=== PATIENT | male | born 1965 ===

== ENCOUNTER 2018-10-08 08:58 | Emergency (ER) | payer OTHER ==
[2018-10-08 09:12] VITALS: BMI 26.5
[2018-10-08] MEDS ORDERED: TDAP Vaccine 0.5 mL Syr IM ONE (09:34)
[2018-10-08 10:36] VITALS: BP 124/53; PULSE 85; RESP 20; TEMP 98; O2SAT 100
--- NOTE | 2018-10-08 10:49 | RAD ---
Date of service: 10/08/2018 PROCEDURE: Left Index finger radiographs. HISTORY: r/o distal finger fx COMPARISON: None available. TECHNIQUE: AP radiograph of the left hand, as well as spot oblique and lateral images of index finger were obtained. FINDINGS: LEFT INDEX FINGER: Unremarkable left 2nd digit without acute displaced fracture identified. Remainder of the left hand (as seen on the AP view) grossly intact. JOINTS: No dislocation. SOFT TISSUES: Soft tissue swelling and oblique soft tissue laceration at the distal 2nd phalanx. No evidence of radiopaque foreign body. OTHER FINDINGS: None. IMPRESSION: Soft tissue swelling and obliques soft tissue laceration at the distal 2nd phalanx. No acute displaced fracture or dislocation identified.
--- NOTE | 2018-10-08 11:00 | ED PDOC ---
Arrival/HPI - General Chief Complaint: Abnormal Skin Integrity Time Seen by Provider: 10/08/18 09:04 Historian: Patient - History of Present Illness Narrative History of Present Illness (Text): 10/08/18 09:57 A 53 year old male, with no significant past medical history, presents to the emergency department complaining of cut to left hand 2nd digit. Patient reports he cut his finger during work while using a saw to cut pork neck bones. Notes also experiencing mild pain to the left hand. Patient denies any numbness to the left 2nd digit, or any other complaints at this time. No PMD Past Medical History - Provider Review Nursing Documentation Reviewed: Yes - Cardiac Hx Cardiac Disorders: Yes Hx Hypertension: Yes - Pulmonary Hx Respiratory Disorders: No - Neurological Hx Neurological Disorder: No - HEENT Hx HEENT Disorder: No - Renal Hx Renal Disorder: No - Endocrine/Metabolic Hx Endocrine Disorders: No - Hematological/Oncological Hx Blood Disorders: No - Integumentary Hx Dermatological Disorder: No - Musculoskeletal/Rheumatological Hx Musculoskeletal Disorders: No - Gastrointestinal Hx Gastrointestinal Disorders: No - Genitourinary/Gynecological Hx Genitourinary Disorders: No - Psychiatric Hx Psychophysiologic Disorder: No Hx Substance Use: No Family/Social History - Physician Review Nursing Documentation Reviewed: Yes Family/Social History: No Known Family HX Smoking Status: Never Smoked Hx Alcohol Use: No Hx Substance Use: No Allergies/Home Meds Allergies/Adverse Reactions: Allergies bee venom protein (honey bee) Allergy (Verified 10/08/18 09:11) SWELLING Review of Systems - Physician Review All systems were reviewed & negative as marked: Yes - Review of Systems Musculoskeletal: Other (left hand pain (mild)) Skin: Other (cut to left hand 2nd digit) Neurological: absent: Other (no numbness to left 2nd digit.) Physical Exam Vital Signs Reviewed: Yes Vital Signs Temp Pulse Resp BP Pulse Ox 10/08/18 10:35 98 F 85 20 124/53 L 100 10/08/18 09:11 97.9 F 72 16 141/97 H 99 Temperature: Afebrile Blood Pressure: Normal Pulse: Regular Respiratory Rate: Normal Appearance: Positive for: Well-Appearing, Non-Toxic, Comfortable Pain Distress: None Mental Status: Positive for: Alert and Oriented X 3 - Systems Exam Upper Extremity: Present: Normal ROM (full ROM to the left 2nd digit), Capillary Refill < 2s (left 2nd digit). No: Cyanosis, Edema Neurological: Present: GCS=15, CN II-XII Intact, Speech Normal Skin: Present: Other (evulsion to left hand 2nd digit fingertip and partial to the nail, no active bleeding) Psychiatric: Present: Alert, Oriented x 3, Normal Insight, Normal Concentration Medical Decision Making ED Course and Treatment: 10/08/18 10:00 Impression: 53 year old male with cut to left hand 2nd digit along with mild pain to hand. Physical exam shows evulsion of left hand 2nd digit fingertip and partial to nail, no active bleeding, good capillary refill, full ROM of 2nd digit; no other acute findings on physical exam. Plan: -- Left Hand X-ray -- Motrin -- Boostrix Vaccine -- Reassess and disposition Progress Notes: 10/08/2018 10:45 Left Hand X-Ray IMPRESSION: Soft tissue swelling and obliques soft tissue laceration at the distal 2nd phalanx. No acute displaced fracture or dislocation identified. Dictator: Lita Garcia MD - RAD Interpretation Radiology Orders: 10/08/18 09:33 HAND LEFT 2ND DIGIT (FINGER) [RAD] Stat - Medication Orders Current Medication Orders: Discontinued Medications Ibuprofen (Motrin Tab) 600 mg PO STAT STA Stop: 10/08/18 09:35 Last Admin: 10/08/18 10:25 Dose: 600 mg [facility] Pain/Vitals Document 10/08/18 10:25 GMI (Rec: 10/08/18 10:25 GMI [facility] [id number]) Pain Reassessment Is This A Pain ReAssessment? Yes Sleep Is patient sleeping during reassessment? No Presence of Pain Presence of Pain Yes Pain Scale Used Protocol: PSCALES Pain Scale Used Numeric Location Pain Location Body Site Hand Tetanus/Reduced Diphtheria/Acell Pertussis (Boostrix Vaccine Inj) 0.5 ml IM .ONCE ONE Stop: 10/08/18 09:35 Last Admin: 10/08/18 10:24 Dose: 0.5 ml Immunization Registry Document 10/08/18 10:24 GMI (Rec: 10/08/18 10:24 GMI [facility] [id number]) [facility]-Date provided 10/08/18 [facility] Immunization Data Document 10/08/18 10:24 GMI (Rec: 10/08/18 10:24 GMI [facility] [id number]) Immunization Data Vaccine Information Sheet Given Yes - Scribe Statement The provider has reviewed the documentation as recorded by the Scribe Hossein Delarosa Provider Scribe Attestation: All medical record entries made by the Scribe were at my direction and personally dictated by me. I have reviewed the chart and agree that the record accurately reflects my personal performance of the history, physical exam, medical decision making, and the department course for this patient. I have also personally directed, reviewed, and agree with the discharge instructions and disposition. Disposition/Present on Arrival - Present on Arrival Any Indicators Present on Arrival: No History of DVT/PE: No History of Uncontrolled Diabetes: No Urinary Catheter: No History of Decub. Ulcer: No History Surgical Site Infection Following: None - Disposition Have Diagnosis and Disposition been Completed?: Yes Diagnosis: Finger avulsion Disposition: HOME/ ROUTINE Disposition Time: 10:10 Condition: GOOD Discharge Instructions (ExitCare): Wound Care (DC) Additional Instructions: DERICK HOUSTON, thank you for letting us take care of you today. Your provider was Alex Miranda DO and you were treated for HURT (L) HAND. The emergency medical care you received today was directed at your acute symptoms. If you were prescribed any medication, please fill it and take as directed. It may take several days for your symptoms to resolve. Return to the Emergency Department if your symptoms worsen, do not improve, or if you have any other problems. Please contact your doctor or call one of the physicians/clinics you have been referred to that are listed on the Patient Visit Information form that is included in your discharge packet. Bring any paperwork you were given at discharge with you along with any medications you are taking to your follow up visit. Our treatment cannot replace ongoing medical care by a primary care provider outside of the emergency department. Thank you for allowing the [facility] team to be part of your care today. Please call Dr. King, the hand doctor, tomorrow morning for a follow up appointment. Keep dressing clean and dry at all times. Prescriptions: Cephalexin [cephalexin] 500 mg PO TID #21 cap Referrals: Jenna King MD [Staff Provider] - Follow up with primary Forms: [employer] (Uzbek)
== END 2018-10-08 10:35 | disposition home or self-care (01) ==
LOC: MERGE 08:58 → ED 08:58
DX: S61.201A Unspecified open wound of left index finger without damage to nail, initial encounter (principal); W27.0XXA Contact with workbench tool, initial encounter; Y99.0 Civilian activity done for income or pay; I10 Essential (primary) hypertension; Z23 Encounter for immunization